=== PATIENT | female | born 1960 | race Caucasian/White ===

== ENCOUNTER 2021-08-26 13:21 | Outpatient (CLI) | payer BC | END 2021-08-26 13:22 | disposition home or self-care (01) | LOC: CSHMAMMO 13:21 | PROVIDERS: ATTEND Student in an Organized Health Care Education/Training Program | DX: Z13.820 Encounter for screening for osteoporosis (principal); R92.8 Other abnormal and inconclusive findings on diagnostic imaging of breast; N64.59 Other signs and symptoms in breast | CPT/HCPCS: 77080; G0279 ==

== ENCOUNTER 2024-11-03 09:00 | Outpatient (CLI) | payer MEDICARE | END 2024-11-03 09:01 | disposition home or self-care (01) | LOC: CSHMAMMO 09:00 | PROVIDERS: ATTEND Student in an Organized Health Care Education/Training Program | DX: Z78.0 Asymptomatic menopausal state (principal) | CPT/HCPCS: 77080 ==